=== PATIENT | male | born 1960 | race African-American/Black ===

== ENCOUNTER 2016-09-07 18:25 | Emergency (ER) | payer SELFPAY ==
[2016-09-07] MEDS ORDERED: ACETAMINOPHEN 325 MG TABLET PO ONE (19:11)
[2016-09-07] MEDS ORDERED: KETOROLAC TROMETHAMINE 60 MG/2 ML SDV IM ONE (21:54)
--- NOTE | 2016-09-07 22:13 | RADIOLOGY REPORT (SQ) ---
EXAM DESCRIPTION: HIP LEFT AP/LATERAL COMPLETED DATE/TIME: 09/07/2016 10:02 pm REASON FOR STUDY: fall COMPARISON: None. NUMBER OF VIEWS: Two views. TECHNIQUE: AP pelvis and additional frog-leg view of the left hip. LIMITATIONS: None. FINDINGS: MINERALIZATION: Normal. LEFT HIP: No acute fracture dislocation. There is deformity of the left femoral head with sclerotic and cystic changes being identified. There is loss of the joint space superiorly. While this may on ly be degenerative in nature, the possibility of an underlying avascular necrosis should be considere d. RIGHT HIP: No fracture or dislocation. No worrisome bone lesions. PUBIS AND ISCHIUM: No fracture. PELVIS: No fracture. SACRUM: No fracture or dislocation. No worrisome bone lesions. LOWER LUMBAR SPINE: No fracture or dislocation. No worrisome bone lesions. No significant disc disea se. SOFT TISSUES: No findings. OTHER: No other significant finding. IMPRESSION: No acute fracture dislocation. Deformity of the left femoral head as noted above. Whil e this may only be degenerative in nature, the possibility of an underlying avascular necrosis should be considered. Clinical correlation is recommended. Other findings as noted above TECHNICAL DOCUMENTATION: JOB ID: [id number] [employer]- All Rights Reserved
--- NOTE | 2016-09-07 22:17 | RADIOLOGY REPORT (SQ) ---
EXAM DESCRIPTION: KNEE LEFT 4 VIEW COMPLETED DATE/TIME: 09/07/2016 10:02 pm REASON FOR STUDY: fall COMPARISON: None. NUMBER OF VIEWS: Four views. TECHNIQUE: AP, lateral, and both oblique radiographic images acquired of the left knee. LIMITATIONS: None. FINDINGS: MINERALIZATION: Normal. BONES: No acute fracture or dislocation. No worrisome bone lesions. JOINT: No effusion. SOFT TISSUES: No soft tissue swelling. No radio-opaque foreign body. OTHER: No other significant finding. IMPRESSION: NEGATIVE STUDY OF THE LEFT KNEE. NO RADIOGRAPHIC EVIDENCE OF ACUTE INJURY. TECHNICAL DOCUMENTATION: JOB ID: [id number] [employer]- All Rights Reserved
[2016-09-07] MEDS ORDERED: MORPHINE SULFATE IR 30 MG TABLET PO ONE (23:25)
--- NOTE | 2016-09-07 23:26 | ER Document Report ---
ED General - General Chief Complaint: 3h Stated Complaint: FALL LEG PAIN Time Seen by Provider: 09/07/16 21:53 Notes: Patient is a 56-year-old male with a past medical history of chronic left hip pain for the past 10 years who presents after falling off a ladder and landing on his feet approximately several hours prior to arrival. States that this has exacerbated his chronic left hip pain which he describes as a dull, constant, aching pain. Any movement of the hip or weightbearing worsens the pain. Nothing improves the pain. He has never followed up with an orthopedic doctor regarding his chronic hip pain. Notes that the hip pain has caused him to have back pain and knee pain on the left as well. He denies any additional injuries today and states he did not hit any part of his body other than landing directly on his feet. TRAVEL OUTSIDE OF THE [place] IN LAST 30 DAYS: No - Related Data Allergies/Adverse Reactions: No Known Allergies Allergy (Verified 03/25/14 21:33) Past Medical History - General Information source: Patient - Social History Smoking Status: Current Every Day Smoker Chew tobacco use (# tins/day): No Frequency of alcohol use: daily Drug Abuse: None Lives with: Spouse/Significant other Family History: Reviewed & Not Pertinent Patient has suicidal ideation: No Patient has homicidal ideation: No - Past Medical History Cardiac Medical History: Reports: Hx Hypercholesterolemia, Hx Hypertension Renal/ Medical History: Denies: Hx Peritoneal Dialysis Surgical Hx: Negative - Immunizations Hx Diphtheria, Pertussis, Tetanus Vaccination: Yes Review of Systems - Review of Systems Notes: Constitutional: Negative for fever. Eyes: Negative for visual changes. ENT: Negative for facial injury Cardiovascular: Negative for chest injury. Respiratory: Negative for shortness of breath. Gastrointestinal: Negative for abdominal injury. Genitourinary: Negative for genital injury Musculoskeletal: Positive for left hip pain Skin: Negative for laceration/abrasions. Neurological: Negative for head injury. Physical Exam - Vital signs Vitals: Temp Pulse Resp BP Pulse Ox 98.0 F 67 18 139/92 H 100 09/07/16 21:20 09/07/16 21:20 09/07/16 21:20 09/07/16 21:20 09/07/16 21:20 Interpretation: Normal Notes: PHYSICAL EXAMINATION: GENERAL: Well-appearing, no acute distress. HEAD: Atraumatic, normocephalic. EYES: Pupils equal round and reactive to light, extraocular movements intact, sclera anicteric, conjunctiva are normal. ENT: nares patent, no oral pharyngeal trauma. No hemotympanum, no Joshua's sign , no raccoon eyes. NECK: No midline cervical spine tenderness. Patient able to move their head to 45 bilaterally without any discomfort. LUNGS: Breath sounds clear to auscultation bilaterally and equal. No wheezes rales or rhonchi. HEART: Regular rate and rhythm without murmurs. CHEST WALL: No ecchymosis over the chest wall. ABDOMEN: Soft, nontender, normoactive bowel sounds. No guarding, no rebound. No abdominal bruising EXTREMITIES: Severe pain with axial loading and internal and external rotation of the left hip, no pitting or edema. No long bone deformities. BACK: No midline spinal tenderness, step-offs, or deformities. Palpation of the left nurys-lumbar spinous region. NEUROLOGICAL: Face symmetric. Tongue protrudes midline. Extraocular motions intact. Pupils are 2 mm and equally reactive. Normal speech, normal gait. 5 out of 5 strength in both the distal and proximal upper and lower extremities bilaterally. Sensation is grossly intact throughout. Finger to nose testing normal. Pronator drift normal. PSYCH: Normal mood, normal affect. SKIN: Warm, Dry, normal turgor, no rashes or lesions noted. Course - Re-evaluation Re-evalutation: 09/07/16 23:22 Patient presents with 10 years of left hip pain that became acutely worse tonight after he fell off a ladder 6 feet. Patient reports that on a daily basis he has severe left hip pain now with associated low back pain and left knee pain secondary to abnormal gait in the setting of left hip pain. Going that is different today is that he fell and caused an acute worsening of his pain. X-rays demonstrate degenerative changes of the left femoral head versus avascular necrosis. Patient does not have a clinical history to support the diagnosis of avascular necrosis and left this is been a chronic issue for more than several years. The patient's persistent daily pain likely requires a hip arthroplasty and I have encouraged him to follow-up promptly with orthopedic surgery. His examination is otherwise unremarkable, he has no head or neck trauma. No chest or abdominal wall trauma. No indication for trauma labs or CT imaging. At this time will discharge with return precautions and follow-up recommendations. Verbal discharge instructions given a the bedside and opportunity for questions given. Medication warnings reviewed. Patient is in agreement with this plan and has verbalized understanding of return precautions and the need for primary care follow-up in the next 24-72 hours. - Vital Signs Vital signs: Temp Pulse Resp BP Pulse Ox 98.1 F 77 20 130/92 H 98 09/07/16 23:43 09/07/16 23:43 09/07/16 23:43 09/07/16 23:43 09/07/16 23:43 - Diagnostic Test Radiology reviewed: Image reviewed, Reports reviewed Radiology results interpreted by me: 09/07/16 23:24 Left hip: Degenerative changes of the femoral head Discharge - Discharge Clinical Impression: Chronic left hip pain Fall Qualifiers: Encounter type: initial encounter Qualified Code(s): W19.XXXA - Unspecified fall, initial encounter Condition: Good Disposition: HOME, SELF-CARE Additional Instructions: Please follow-up with orthopedic surgery at your earliest ability regarding your left hip pain. Return if you have worsening of your pain, weakness, numbness, fever greater than 100.4F, or any other symptoms that are worrisome to you. For your pain: Take ibuprofen 600 mg and acetaminophen 1000 mg every 6 hours together as needed for pain. If this does not control your pain you may take 15 mg of oral morphine every 4 hours as needed. Please be very careful about using the oral morphine and only use this for severe pain. Prescriptions: Morphine Sulfate [Morphine Ir 15 mg Tablet] 15 mg PO Q4HP PRN #12 tablet PRN Reason: Forms: Return to Work
[2016-09-07] MEDS ORDERED: MORPHINE SULFATE IR 15 MG TABLET PO ONE (23:33)
[2016-09-07 23:46] VITALS: BP 130/92
== END 2016-09-07 23:43 | disposition home or self-care (01) ==
LOC: ER 18:25
DX: M25.552 Pain in left hip (principal); W11.XXXA Fall on and from ladder, initial encounter; G89.29 Other chronic pain; R26.89 Other abnormalities of gait and mobility; M54.9 Dorsalgia, unspecified; M25.569 Pain in unspecified knee; F17.200 Nicotine dependence, unspecified, uncomplicated; I10 Essential (primary) hypertension
CPT/HCPCS: 99283; 96372; 73502; 73562; J1885